=== PATIENT | female | born 1975 | race Caucasian/White ===

== ENCOUNTER → 2016-11-29 | Day surgery (SDC) | payer OTHER ==
[~2016-11-29] VITALS: Ht 162.6 cm; Wt 75.6 kg
[~2016-11-29] MED LIST: 0.9% Sodium Chloride 1,000 ML IV SCH; ACET325T51 PO; CLIN-78 PO; DIL4T PO; DULO60CA42 PO; FEXO1TAB4 PO; FLUC150T48 PO; IBUP200C PO; LEVO25TA5 PO; LINA145C PO; LISI2.5T PO; Lactated Ringer's 1,000 ML IV ONE; Lactated Ringer's 1,000 ML IV SCH; MetoCLOpramide 5 mg/mL 2 mL Inj IVPUSH PRN; Ondansetron 2 mg/mL 2 mL Inj IVPUSH PRN; Propofol 10,000 mCg/mL 20 mL Inj ONE; ROB500 PO; Sodium Chloride LOK Flush 10 mL Syringe IV PRN; TOPI100T32 PO; VIT1TABL83 PO; fentaNYL-PF 50 mCg/mL 2 mL Inj IVPUSH PRN
[2016-11-29 14:06] VITALS: BP 106/67; PULSE 69; RESP 14; O2SAT 96
--- NOTE | 2016-11-29 14:24 | PCM.HPANE ---
Patient Data Surgeon Admitting Provider: Attending Provider:Jeancarlos Gong MD Primary Care Physician:Arley Malave PA-C Other Provider: Reason for Visit Constipation/Epigastric Pain Ht/WT & BMI Height (Feet): 5 Height (Inches): 4 Weight (Kilograms): 75.57 Body Mass Index 28.00 Allergies Coded Allergies: pregabalin (Verified Allergy, Intermediate, blurred vision, weight gain, ) ciprofloxacin (Verified Allergy, Unknown, 11/13/16) gabapentin (Verified Allergy, Unknown, 11/13/16) morphine (Verified Allergy, Unknown, 11/13/16) amoxicillin (Verified Adverse Reaction, Intermediate, dizziness, clumsiness, 11/13/16) clavulanic acid (Verified Adverse Reaction, Intermediate, dizziness, clumsiness, 11/13/16) Past Anesthesia History Anesthesia History: Denies:: Abnormal Airway, Anesthesia Reactions, Difficult Intubation, Fam Anesthesia Reaction, Fam Malignant Hypertherm, Malignant Hyperthermia Diabetes History Hx Diabetes?: No MRSA MRSA: No Medications Hypertension Medication: Yes Home Meds Incl Beta Naman: No Reported Medications Methocarbamol 500 Mg TabletUnknown Dose PO 11/27/16 Hydromorphone (Dilaudid)4 Mg Tablet4 Mg PO Q4H PRN Pain Ref 0 11/27/16 Acetaminophen 325 Mg Tablet2 Tablet PO Q4H PRN For Fever Ref 0 11/13/16 Topiramate (Topamax)100 Mg Napfcy137 Mg PO DAILY Ref 0 11/13/16 Lisinopril 2.5 Mg TabletUnknown Dose PO DAILY 30 Days Ref 0 11/13/16 Linaclotide (Linzess)145 Mcg Otntbog476 Mcg PO DAILY 11/13/16 Levothyroxine 25 Mcg TabletUnknown Dose PO DAILY Ref 0 11/13/16 Ibuprofen 200 Mg Pyvqwpu463 Mg PO QID PRN For Pain Ref 0 11/13/16 Fluconazole (Diflucan)150 Mg Cuspyr431 Mg PO ONCE #1 TABLET Ref 0 11/13/16 Duloxetine (Cymbalta)60 Mg Capsule.dr60 Mg PO BID Ref 0 11/13/16 Clindamycin 300 Mg Xsedyol754 Mg PO QID Ref 0 11/13/16 Vit B Comp/C/FA/Iron/Vit E (Vitamin B Complex Tablet)1 Each Tablet1 Each PO DAILY 11/13/16 Fexofenadine/Pseudoephedrine ER (Xena-D 12 Hour)1 Each Tablet1 Tablet PO DAILY 11/13/16 Discontinued Reported Medications Hydromorphone (Dilaudid)4 Mg Tablet4 Mg PO TID PRN Pain Ref 0 11/13/16 History History of ENT Problems?: No HEENT History: Denies:: Abnormal Airway Difficult Intubation Dysphagia Hearing Problem Denture Type: None Teeth Condition: Within Normal Limits Hx of Heart Problems?: Yes Cardiovascular History: Positive for:: Hypertension Hx of Respiratory Problem?: No Respiratory History: Denies:: Asthma COPD Chest Surgery Cough Dyspnea Emphysema Hemoptysis Oxygen Administration Pneumonia Pulmonary Embolism Tuberculosis Use of C-PAP Machine Use of Inhalers / NEBS Hx Neurologic Problems?: Yes Neurological History: Denies:: CVA Other History/Comments RSD Hx of GI Problems?: Yes Gastrointestinal History: Denies:: Cirrhosis Diverticulitis Gall Bladder Disease Gastroesphageal Reflux Gastrointestinal Bleeding Heartburn Hepatitis Hiatal Hernia Liver Disease Rectal Bleeding Hx of Problems?: No Female Hx: Denies:: Currently Hx Musculoskeletal Problems?: Yes Musculoskeletal History: Positive for:: Joint Replacement (hips) Other History/Comment Fibromyalgia, RSD of coccyx Hx of Psycho/Social Problems?: Yes Psycho Social History: Positive for:: Anxiety Denies:: Hx Depression Hx Surgeries?: Yes (hysterectomy, tossilectomy, wistom teeth, bilateral hip, bilateral carpal ) Hx Any Other Health Problems?: Yes Hx Diabetes: No Hx Alcohol Use: NoHx Substance Use: No Stop/Bang Treated for Sleep Apnea?: No Do You Have a CPAP Machine?: No S-Snoring: Do You Snore Loudly: No T-Tired: feel tired, fatigued: No P-Blood Pressure: treated: No B- Body Mass Index > 35 kg/m2: No A- Age over 50: No N- Neck Large Circumference: No G- Gender Male: No LULI Risk Assessment: Low Risk, <3 Yes Risk Assessment Category Category 1A: Patient has history of documented sleep apnea, and HAS NOT received any narcotic, sedative or anesthesia administration during this stay. Category 1B: Patient has history of documented sleep apnea, and HAS received any narcotic , sedative or anesthesia administration during this stay Category 2: Patient has SUSPECTED Obstructive Sleep Apnea, and HAS received any narcotic , sedative or anesthesia administration during this stay. Category 3: Patient has SUSPECTED Obstructive Sleep Apnea and HAS NOT received narcotic, sedative or anesthesia administration during this stay. Category 4: Outpatient in Procedural Areas with known sleep apnea or who screen positive for High Risk via the STOP/BANG questionnaire. Exam Exam Vital Signs Vital Signs Date Time Temp Pulse Resp B/P Pulse Ox O2 Delivery O2 Flow Rate FiO2 11/29/16 14:06 36.6 69 14 106/67 96 Room Air General Appearance: Alert, Oriented X3, Cooperative HEENT/AIRWAY: MP 2 Lungs: Clear to Auscultation, Normal Air Movement Heart: Exam Unremarkable, Regular Rate/Rhythm, No Murmurs/Rubs/Gallops Meds/Labs/Diagnostics Admission Meds Current Medications Lactated Ringer's (Lr) 1,000 ml @ 10 mls/hr Q24H ONCE IV Last administered on 11/29/16t 14:13; Start 11/29/16 at 06:00; Stop 11/30/16 at 05:59 Plan Impression Patient chart reviewed, patient interviewed and anesthestic plan with risks, benefits, and alternatives discussed, and informed consent obtained. Tera Cates MD Nov 29, 2016 14:24
[2016-11-29 15:04] VITALS: BP 108/64; PULSE 65; RESP 16; O2SAT 98
[2016-11-29 15:14] VITALS: BP 102/56; PULSE 61; RESP 16; O2SAT 100
[2016-11-29 15:19] VITALS: BP 107/78; PULSE 64; RESP 16; O2SAT 99
--- NOTE | 2016-11-29 15:22 | ENDO ---
[address] [address] ENDOSCOPY PROCEDURE PATIENT: BLANCA ANDERSON : 1975 MR#: [id number] ADMIT: 11/29/2016 JOB ID: [id number] DATE: 11/29/2016 TYPE OF OPERATION: 1. Esophagogastroduodenoscopy with biopsy. 2. Colonoscopy with hot snare polypectomy. 3. Colonoscopy with biopsy. PREOPERATIVE DIAGNOSIS(ES): Epigastric pain and constipation. POSTOPERATIVE DIAGNOSIS(ES): 1. J-shaped stomach. 2. One 5 mm polyp seen at hepatic flexure, removed by hot snare polypectomy. 3. Two polyps in the ascending colon, 3 mm in size, removed by cold biopsy forceps. 4. Small internal hemorrhoids. ANESTHESIA: Monitored anesthesia care. COMPLICATIONS: None. BLOOD LOSS: Minimal. DESCRIPTION OF PROCEDURE: After risks and benefits were explained to the patient, informed consent was obtained. After anesthesia administered, an upper endoscope was then inserted into the mouth, intubating the esophagus, stomach, second portion of duodenum. Mucosa carefully examined. After procedure was done, the scope withdrawn and procedure terminated. Colonoscope was then inserted from the rectum to the cecum. Mucosa carefully examined. Prep of the patient was fair. After the procedure was done, the scope was withdrawn and the procedure terminated. FINDINGS: Upon inspection of the esophagus, the esophagus was normal without masses, ulcers, lesions. Z-line located at 35 cm from the incisors. Upon entering the stomach, the stomach appeared J-shaped but no masses or ulcers were seen. Retroflexion was normal. Duodenal bulb, first and second portion were normal. Biopsies taken of the duodenum, antrum and body of stomach. Upon inspection of the anus, no masses, hemorrhoids, ulcers, fissures that were seen. Throughout the entire examination, there was a 5 mm hepatic flexure polyp removed by hot snare polypectomy. There were two 3 mm polyps in the ascending colon, removed by cold biopsy forceps. Retroflexion revealed some small internal hemorrhoids. IMPRESSION: 1. Small internal hemorrhoids. 2. A 5 mm hepatic flexure polyp removed by hot snare polypectomy. 3. Two 3 mm polyps in the ascending colon removed by cold biopsy forceps. 4. J-shaped stomach. RECOMMENDATION: 1. Await pathology results. If three or more tubular adenoma polyps, then repeat colonoscopy in three years. If less than three tubular adenoma polyps, then repeat colonoscopy in five years. 2. Followup in GI clinic as needed.
--- NOTE | 2016-12-04 16:24 | PATH ---
SURGICAL PATHOLOGY Attending Physician:Jeancarlos Gong MD CASE STATUS: Signed Out PATIENT NAME: BLANCA ANDERSON PID: [id number] : 1975 DATE COLLECTED:11/29/2016 00:00 SPECIMEN: 1: Duodenum, Biopsy 2: Stomach, Antrum, Biopsy 3: Gastric, Biopsy 4: Colon, Polyp 5: Colon, Polyp CLINICAL HISTORY: CONSTIPATION, EPIGASTRIC PAIN 1). DUODENUM BIOPSY 2). ANTRUM BIOPSY 3). GASTRIC BODY BIOPSY 4). HEPATIC FLEXURE POLYP X1 5). ASCENDINGC OLON POLYPS X2 FINAL DIAGNOSIS: 1. Duodenum, Biopsy: Duodenal mucosa with no diagnostic abnormality. Negative for active inflammation, features of sprue, dysplasia or malignancy. 2. Antrum, Biopsy: Gastric antral mucosa with features of reactive gastropathy. Helicobacter organisms not identified. Negative for intestinal metaplasia, dysplasia or malignancy. 3. Gastric Body, Biopsy: Gastric body mucosa with no diagnostic abnormality. Helicobacter organisms not identified. Negative for intestinal metaplasia, dysplasia or malignancy. 4. Hepatic Flexure Polyp, Biopsy: Colonic mucosa with no diagnostic abnormality, consistent with polypoid redundancy. 5. Ascending Colon Polyps x2, Biopsies: Tubular adenoma (two of three pieces). ICD10: R10.13 D12.2 GROSS DESCRIPTION: Received five formalin-filled containers, each labeled with the patient's name. 1. Received in formalin, labeled with the patient's name and "duodenum biopsy" is one fragment of mary soft tissue measuring 0.5 x 0.3 x 0.1 cm. The fragment is totally submitted in cassette 1A. 2. Received in formalin, labeled with the patient's name and "antrum biopsy" are two fragments of mary soft tissue ranging from 0.2 x 0.1 x 0.1 cm to 0.5 x 0.3 x 0.1 cm. The fragments are totally submitted in cassette 2A. 3. Received in formalin, labeled with the patient's name and "gastric body biopsy" is one fragment of mary soft tissue measuring 0.5 x 0.3 x 0.1 cm. The fragment is totally submitted in cassette 3A. 4. Received in formalin, labeled with the patient's name and "hepatic flexure polyp" are three fragments of mary soft tissue ranging from 0.1 x 0.1 x 0.1 cm to 0.2 x 0.1 x 0.1 cm. The fragments are totally submitted in cassette 4A 5. Received in formalin, labeled with the patient's name and "ascending colon polyp" are three fragments of mary soft tissue ranging from 0.1 x 0.1 x 0.1 cm to 0.2 x 0.1 x 0.1 cm. The fragments are totally submitted in cassette 5A. ([id number]) ICD-9 CODES: CPT CODES: 1: 50801 2: 06416 3: 79540 4: 43856 5: 45425 Electronically Signed Out Sancho Anthony MD, Ph.D. [facility] Pathology [facility] [address], [place] [address] Technical component performed at [facility], [address], [place], [address]
== END | disposition home or self-care (01) ==
LOC: END 00:41
PROVIDERS: ATTEND Internal Medicine Gastroenterology
DX: D12.2 Benign neoplasm of ascending colon (principal); K59.00 Constipation, unspecified; K63.5 Polyp of colon; K64.8 Other hemorrhoids; R10.13 Epigastric pain; I10 Essential (primary) hypertension; F41.9 Anxiety disorder, unspecified; F17.210 Nicotine dependence, cigarettes, uncomplicated; Z79.899 Other long term (current) drug therapy